=== PATIENT | female | born 1965 | race Caucasian/White ===

== ENCOUNTER 2016-11-11 22:33 | Emergency (ER) | payer OTHER ==
[2016-11-11 22:44] VITALS: BP 141/80; PULSE 74; RESP 18; TEMP 98.6; O2SAT 96
[2016-11-11] MEDS ORDERED: AMOXICILLIN/CLAVULANATE POT 875/125 MG TAB PO ONE (23:05)
[2016-11-11] MEDS ORDERED: TDAP ADULT 0.5 ML INJ (BOOSTRIX) IM ONE (23:05)
--- NOTE | 2016-11-11 23:09 | EDPHY ---
H & P Stated Complaint: bitten by her cat 2129 today r hand, cat is vaccinated Source: Patient Exam Limitations: No limitations - Personal History LMP (Females 10-55): Now Current Tetanus/Diphtheria Vaccine: Unsure Current Tetanus Diphtheria and Acellular Pertussis (TDAP): Unsure - Medical/Surgical History Hx Asthma: No Hx Chronic Respiratory Disease: No Hx Diabetes: No Hx Cardiac Disease: No Hx Renal Disease: No Hx Cirrhosis: No Hx Alcoholism: No Hx HIV/AIDS: No Hx Splenectomy or Spleen Trauma: No Other PMH: no history - Social History Smoking Status: Never smoked HPI/ROS: CHIEF COMPLAINT: Cat bite HISTORY OF PRESENT ILLNESS: Patient complains of cat bite to the right forearm less than 1 hour ago. This is her own cat. She was attempting to get the cat inside on the cat bit her. The puncture is to the dorsum of the right forearm, mid shaft. Mildly painful. No radiating pain. No redness. No edema. She did irrigate the wound at home. She is uncertain when her last tetanus was administered. No other associated complaints or modifying factors. REVIEW OF SYSTEMS: Ten systems reviewed and are negative unless otherwise noted in the HPI EXAMINATION General Appearance: Alert, no distress Cardiovascular: Pulses normal throughout. Symmetric radial pulses are 2+. Brisk cap refill Neurological: A&O, sensory symmetric, strength symmetric Skin: Warm and dry, no rash. Three small puncture wounds over the dorsum of the right forearm. No bleeding. No edema. No purulence. No streaking. Extremities: Mild tenderness over the area of puncture wounds. Range of motion is fully intact and symmetric in both upper extremities. Neurovascular intact. All compartments are soft. Psychiatric: Mood and affect normal DIFFERENTIAL DIAGNOSES: Including but not limited to cat bite, compartment syndrome, cellulitis, skin infection, abscess, tenosynovitis MDM: 11:05 p.m. Cat bite to the dorsum of the right arm. This is her cat, which is up-to-date on its vaccinations. This happened less than 1 hour ago. There is no erythema. No large puncture wounds. We will copiously irrigate the wound. We will update her tetanus immunization. I will provide 1st dose of Augmentin here. 11:30 p.m. Wound has been copiously irrigated. Bacitracin was applied. Cotton, nonocclusive dressing. Discharged home with continuation the Augmentin that was started here. Follow up with primary care physician. Return here for any increasing pain, redness, streaking, fever, difficulty with range of motion of the arm. She is comfortable this plan. She is discharged home neurovascular intact, and she is in stable condition ED Precautions: Worsening pain. Erythema, edema, cyanosis, pallor, paresthesia or anesthesia. SUPERVISION: This patient was independently evaluated without direct examination by the attending physician. Case was discussed with attending physician. (He Buchanan) Constitutional: Initial Vital Signs Temperature (C) 37 C 11/11/16 22:41 Heart Rate 74 11/11/16 22:41 Respiratory Rate 18 11/11/16 22:41 Blood Pressure 141/80 H 11/11/16 22:41 O2 Sat (%) 96 11/11/16 22:41 O2 Delivery Mode Room Air Allergies/Adverse Reactions: tetracycline Allergy (Verified 11/11/16 22:41) Home Medications: Medication Instructions Recorded Amoxicillin/Clavulanate Pot 875 mg PO BID #20 tab 11/11/16 [Augmentin 875 MG TAB (*)] Medical Decision Making ED Course/Re-evaluation: PHYSICIAN DOCUMENTATION: The patient was evaluated and managed by the Physician Muffler Mechanic. My co- signature indicates that I have reviewed this chart and I agree with the findings and plan of care as documented. I am the secondary supervising physician. (Tracie Dietz) - Data Points Medications Given: Discontinued Medications Amoxicillin/Clavulanate Potassium (Augmentin 875mg) 875 mg PO EDNOW ONE PRN Reason: Protocol Stop: 11/11/16 23:06 Last Admin: 11/11/16 23:26 Dose: 875 mg Diphtheria/Tetanus/Acell Pertussis (Boostrix) 0.5 ml IM .ONCE ONE Stop: 11/11/16 23:06 Last Admin: 11/11/16 23:26 Dose: 0.5 ml Departure - Departure Disposition: Home, Routine, Self-Care Clinical Impression: Cat bite Condition: Good Instructions: Animal Bite (ED) Additional Instructions: 1. Augmentin by mouth twice daily for 10 days 2. Follow up with primary care physician for definitive care 3. Monitor the wound closely and return here for any route redness, streaking, swelling or changes in the appearance of the arm. Referrals: GUERDA DE LUNA [Other] - As per Instructions Prescriptions: Amoxicillin/Clavulanate Pot [Augmentin 875 MG TAB (*)] 875 mg PO BID #20 tab
== END 2016-11-11 23:33 | disposition home or self-care (01) ==
PROC: 3E0234Z Introduction of Serum, Toxoid and Vaccine into Muscle, Percutaneous Approach (ICD-10-PCS; principal; 2016-11-11)
DX: S51.851A Open bite of right forearm, initial encounter (principal); Z23 Encounter for immunization; W55.01XA Bitten by cat, initial encounter

== ENCOUNTER 2018-04-23 02:13 | Emergency (ER) | payer OTHER ==
--- NOTE | 2018-04-23 02:51 | EDPHY ---
H & P Stated Complaint: RECTAL BLEEDING/ABD PAIN Time Seen by Provider: 04/23/18 02:40 HPI/ROS: Chief Complaint: Abdominal pain, rectal bleeding HPI: 52-year-old woman began having some mild generalized abdominal cramping at 11:00 a.m. Last night. She went to the bathroom had several loose stools which were otherwise unremarkable. She then had a about a tbsp size blood clot per rectum. There was some red blood in the toilet water. She does have a history of hemorrhoids but states she does not feel she has any at this point. Pain is about a 3/10. It comes in waves in generalized. No nausea or vomiting. No lightheadedness or fainting. She has never had a colonoscopy. She has not passed any blood for the last 2 hr. ROS: 10 systems were reviewed and were negative except those elements noted in the HPI. PMH: Denies Social History: No smoking, occasional alcohol, no recreational drug use Family History: non-contributory Physical Exam: Gen: Awake, Alert, No Distress HEENT: Nose: no rhinorrhea Eyes: PERRLA, EOMI Mouth: Moist mucosa Neck: Supple, no JVD Chest: nontender, lungs clear to auscultation Heart: S1, S2 normal, no murmur Abd: Soft, non-tender, no guarding Back: no CVA tenderness, no midline tenderness Rectal: No hemorrhoids fissures or masses Ext: no edema, non-tender Skin: no rash Neuro: CN II-XII intact, Sensation grossly intact, Strength 5/5 in bilateral upper and lower extremities - Personal History LMP (Females 10-55): Post Menopausal Current Tetanus Diphtheria and Acellular Pertussis (TDAP): Yes - Medical/Surgical History Hx Asthma: No Hx Chronic Respiratory Disease: No Hx Diabetes: No Hx Cardiac Disease: No Hx Renal Disease: No Hx Cirrhosis: No Hx Alcoholism: No Hx HIV/AIDS: No Hx Splenectomy or Spleen Trauma: No Other PMH: PAPILOMA REMOVAL, EYE SX - Social History Smoking Status: Never smoked Constitutional: Initial Vital Signs Temperature (C) 37.5 C 04/23/18 02:18 Heart Rate 103 H 04/23/18 02:18 Respiratory Rate 16 04/23/18 02:18 Blood Pressure 103/75 04/23/18 02:18 O2 Sat (%) 95 04/23/18 02:18 O2 Delivery Mode Room Air Allergies/Adverse Reactions: tetracycline Allergy (Verified 11/11/16 22:41) Home Medications: Medication Instructions Recorded NK [No Known Home Meds] 04/23/18 Medical Decision Making ED Course/Re-evaluation: 52-year-old woman with some abdominal cramping and 1 episode of blood per rectum. She has not had any further bleeding here. No hemorrhoids. Abdomen is soft and benign. Pain is resolved with no treatment here. Laboratory evaluations are unremarkable. I do not see any evidence of acute surgical or infectious process. Plan will be to discharge with referral to GI doctor for further evaluation, she will return for any concerns. - Data Points Laboratory Results: Laboratory Results 04/23/18 02:56 04/23/18 02:56 04/23/18 04/23/18 02:56 02:56 WBC 8.04 10^3/uL 10^3/uL (3.80-9.50) RBC 4.49 10^6/uL 10^6/uL (4.18-5.33) Hgb 13.5 g/dL g/dL (12.6-16.3) Hct 39.5 % % (38.0-47.0) MCV 88.0 fL fL (81.5-99.8) MCH 30.1 pg pg (27.9-34.1) MCHC 34.2 g/dL g/dL (32.4-36.7) RDW 12.8 % % (11.5-15.2) Plt Count 254 10^3/uL 10^3/uL (150-400) MPV 9.7 fL fL (8.7-11.7) Neut % (Auto) 73.1 % % (39.3-74.2) Lymph % (Auto) 16.7 % % (15.0-45.0) [place] % (Auto) 9.1 % % (4.5-13.0) Eos % (Auto) 0.5 % L % (0.6-7.6) Baso % (Auto) 0.4 % % (0.3-1.7) Nucleat RBC Rel Count 0.0 % % (0.0-0.2) Absolute Neuts (auto) 5.88 10^3/uL 10^3/uL (1.70-6.50) Absolute Lymphs (auto) 1.34 10^3/uL 10^3/uL (1.00-3.00) Absolute Monos (auto) 0.73 10^3/uL 10^3/uL (0.30-0.80) Absolute Eos (auto) 0.04 10^3/uL 10^3/uL (0.03-0.40) Absolute Basos (auto) 0.03 10^3/uL 10^3/uL (0.02-0.10) Absolute Nucleated RBC 0.00 10^3/uL 10^3/uL (0-0.01) Immature Gran % 0.2 % % (0.0-1.1) Immature Gran # 0.02 10^3/uL 10^3/uL (0.00-0.10) Sodium 141 mEq/L mEq/L (135-145) Potassium 3.8 mEq/L mEq/L (3.3-5.0) Chloride 108 mEq/L mEq/L (97-110) Carbon Dioxide 23 mEq/l mEq/l (22-31) Anion Gap 10 mEq/L mEq/L (6-14) BUN 24 mg/dL H mg/dL (7-23) Creatinine 0.8 mg/dL mg/dL (0.6-1.0) Estimated GFR > 60 Glucose 105 mg/dL H mg/dL (70-100) Calcium 9.1 mg/dL mg/dL (8.5-10.4) Medications Given: Discontinued Medications Sodium Chloride (Ns) 1,000 mls @ 0 mls/hr IV ONCE ONE; Wide Open PRN Reason: Protocol Stop: 04/23/18 02:57 Last Admin: 04/23/18 02:56 Dose: 1,000 mls Departure - Departure Disposition: Home, Routine, Self-Care Clinical Impression: Abdominal pain, Rectal bleed Condition: Good Instructions: Rectal Bleeding (ED), Acute Abdominal Pain (ED) Additional Instructions: Follow up with a dual rate dealer in 4-5 days for further evaluation. Return to the emergency department for increasing abdominal pain, multiple episodes of blood per rectum, lightheadedness, fainting, or any other concerns. Referrals: Cynthia Chowdary MD [Medical Doctor] - As per Instructions
[2018-04-23] MEDS ORDERED: NS 1,000 ML IV ONE (02:56)
[2018-04-23 03:03] LABS: PLATELET COUNT 254 10^3/uL (150-400)
[2018-04-23 03:54] VITALS: BP 110/91
== END 2018-04-23 03:54 | disposition home or self-care (01) ==
DX: R10.9 Unspecified abdominal pain (principal); K62.5 Hemorrhage of anus and rectum; E86.9 Volume depletion, unspecified